=== PATIENT | female | born 1970 | race Caucasian/White ===

== ENCOUNTER 2016-05-25 09:14 | Day surgery (SDC) | payer OTHER ==
--- NOTE | ~2016-05-25 | EGD ---
EGD REPORT [facility] [address] [id number] NAME: FAIZAN GUEVARA : [birth year] STATUS : REG [facility] PAT#: [id number] AGE: 45 ADM/REG DATE : 05/25/16 MR#: [id number] REPORT SERV DATE: 05/25/16 DICTATED BY: DERIAN HALE DATE: 05/25/16 REPORT STATUS : Draft TRANSCRIBED BY: [facility] DATE: 05/25/16 [facility] Center Patient Name: Faizan Guevara Date of : 1970 Attending MD: SABA HALE MD Procedure Date No Time: 05/25/2016 Procedure: Colonoscopy Indications: FH of Colon Cancer - 1st degree relative Referring MD: Bibiana Sharma Medicines: See the Anesthesia note for documentation of the administered medications Complications: No immediate complications. Estimated blood loss: None. Procedure: Pre-Anesthesia Assessment: - ASA Grade Assessment: II - A patient with mild systemic disease. - Prior to the procedure, a History and Physical was performed, and patient medications and allergies were reviewed. The patient's tolerance of previous anesthesia was also reviewed. The risks and benefits of the procedure and the sedation options and risks were discussed with the patient. All questions were answered, and informed consent was obtained. Prior Anticoagulants: The patient has taken no previous anticoagulant or antiplatelet agents. After reviewing the risks and benefits, the patient was deemed in satisfactory condition to undergo the procedure. After I obtained informed consent, the scope was passed under direct vision. Throughout the procedure, the patient's blood pressure, pulse, and oxygen saturations were monitored continuously. The PCF [id number] was introduced through the anus and advanced to the terminal ileum. The ileocecal valve, appendiceal orifice, terminal ileum and rectum were photographed. The entire colon was examined. The colonoscopy was performed without difficulty. The patient tolerated the procedure well. The quality of the bowel preparation was adequate. Findings: The perianal and digital rectal examinations were normal. The terminal ileum appeared normal. A sessile polyp was found in the sigmoid colon. The polyp was 5 mm in size. The polyp was removed with a cold snare. Resection and retrieval were complete. A sessile polyp was found in the cecum. The polyp was 4 mm in size. The polyp was removed with a cold snare. Resection and retrieval were EGD REPORT [address] [address] NAME: FAIZAN GUEVARA : [birth year] STATUS : REG [facility]#: [id number] AGE: 45 ADM/REG DATE : 05/25/16 MR#: [id number] REPORT SERV DATE: 05/25/16 DICTATED BY: DERIAN HALE DATE: 05/25/16 REPORT STATUS : Draft TRANSCRIBED BY: [employer] DATE: 05/25/16 complete. A sessile polyp was found in the distal descending colon. The polyp was 5 mm in size. The polyp was removed with a cold snare. Resection and retrieval were complete. A sessile polyp was found in the rectum. The polyp was 3 mm in size. The polyp was removed with a cold snare. Resection was complete, but the polyp tissue was not retrieved. Non-bleeding internal hemorrhoids were found during retroflexion and were Grade I (internal hemorrhoids that do not prolapse). No other significant abnormalities were identified in a careful examination of the remainder of the colon. Impression: - The examined portion of the ileum was normal. - One 5 mm polyp in the sigmoid colon. Resected and retrieved. - One 4 mm polyp in the cecum. Resected and retrieved. - One 5 mm polyp in the distal descending colon. Resected and retrieved. - One 3 mm polyp in the rectum. Complete resection. Polyp tissue not retrieved. - Non-bleeding internal hemorrhoids. Recommendation: - Patient has a contact number available for emergencies. The signs and symptoms of potential delayed complications were discussed with the patient. Return to normal activities tomorrow. Written discharge instructions were provided to the patient. - Regular diet. - Discharge patient to home. - Continue present medications. - Await pathology results. - Repeat colonoscopy in 3 years for surveillance. Procedure Code(s): --- Professional --- 72848, Colonoscopy, flexible, proximal to splenic flexure; with removal of tumor(s), polyp(s), or other lesion(s) by snare technique Diagnosis Code(s): --- Professional --- K64.0, First degree hemorrhoids K62.1, Rectal polyp D12.4, Benign neoplasm of descending colon D12.0, Benign neoplasm of cecum D12.5, Benign neoplasm of sigmoid colon Z80.0, Family history of malignant neoplasm of digestive organs EGD REPORT [facility] [address] [address] NAME: FAIZAN GUEVARA : [birth year] STATUS : REG [facility]#: [id number] AGE: 45 ADM/REG DATE : 05/25/16 MR#: [id number] REPORT SERV DATE: 05/25/16 DICTATED BY: DERIAN HALE DATE: 05/25/16 REPORT STATUS : Draft TRANSCRIBED BY: [employer] DATE: 05/25/16 CPT copyright 2013 [employer] [place] [employer]. All rights reserved. The codes documented in this report are preliminary and upon maintenance shop welder review may be revised to meet current compliance requirements. SABA HALE MD 05/25/2016 12:14 PM This report has been signed electronically. Number of Addenda: 0 Note Initiated On: 05/25/2016 11:38 AM Scope Withdrawal Time 0 hours 12 minutes 44 seconds [address] [id number]
[~2016-05-25 09:14] MED LIST: SYN.025B PO; ZANTAC150 MG PO
== END 2016-05-25 23:59 | disposition home or self-care (01) ==
LOC: DMU 09:14
PROVIDERS: Internal Medicine Gastroenterology
PROC: 0DBP8ZZ Excision of Rectum, Via Natural or Artificial Opening Endoscopic (ICD-10-PCS; 2016-05-25)
PROC: 0DBM8ZZ Excision of Descending Colon, Via Natural or Artificial Opening Endoscopic (ICD-10-PCS; 2016-05-25)
PROC: 0DBH8ZZ Excision of Cecum, Via Natural or Artificial Opening Endoscopic (ICD-10-PCS; 2016-05-25)
PROC: 0DBN8ZZ Excision of Sigmoid Colon, Via Natural or Artificial Opening Endoscopic (ICD-10-PCS; principal; 2016-05-25 11:00)
DX: D12.5 Benign neoplasm of sigmoid colon (principal); D12.0 Benign neoplasm of cecum; D12.4 Benign neoplasm of descending colon; K64.0 First degree hemorrhoids; K62.1 Rectal polyp; E03.9 Hypothyroidism, unspecified; E66.9 Obesity, unspecified; G47.33 Obstructive sleep apnea (adult) (pediatric); Z80.0 Family history of malignant neoplasm of digestive organs; Z79.899 Other long term (current) drug therapy
CPT/HCPCS: 88305